=== PATIENT | male | born 1960 | race Caucasian/White ===

== ENCOUNTER 2024-01-15 09:24 | Emergency (ER) | payer OTHER, SELFPAY ==
[2024-01-15] VITALS (10 sets, daily range): BP systolic 119–150; BP diastolic 68–86; PULSE 64–89; RESP 17–18; TEMP 36.4; O2SAT 90–98; BMI 39.9
--- NOTE | 2024-01-15 09:46 | XRR_ITS ---
PROCEDURE INFORMATION: Exam: XR Chest Exam date and time: 01/15/2024 9:51 AM Age: 63 years old Clinical indication: Dyspnea; Additional info: Dyspnea/cough TECHNIQUE: Imaging protocol: Radiologic exam of the chest. Views: 1 view. COMPARISON: No relevant prior studies available. FINDINGS: Lungs: The lung parenchyma is clear. Pleural spaces: No pneumothorax. No large pleural effusion. Heart/Mediastinum: The cardiomediastinal silhouette is within normal limits. Bones/joints: Unremarkable. XR/XR chest 1V portable [id number] IMPRESSION: No acute cardiopulmonary abnormality.
--- NOTE | 2024-01-15 09:47 | ECG_ITS ---
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 Measurements Intervals [place] Rate: 71 P: 78 HI: 166 QRS: -5 QRSD: 96 T: 16 QT: 375 QTc: 408 Interpretive Statements SINUS RHYTHM No previous ECG available for comparison Electronically Signed On 01-15-2024 11:42:08 CDT by Pilo Polanco M.D. [id number]
--- NOTE | 2024-01-15 10:12 | ED_ITS ---
HPI - Dizziness 2 General: Chief Complaint: Dizziness Stated Complaint: FALL Time Seen by Provider: 01/15/24 09:40 Source: patient Mode of arrival: ambulatory History of Present Illness: HPI Narrative: 63-year-old male presents emergency room via EMS after near syncopal episode at [facility]. He is walking around to get dizzy felt weak and fell. He denies hitting anything as he fell he denies striking his head he never had a full loss of consciousness. He was somewhat dizzy at the time he had a good anticipation of the episode. He states he had a similar episode several years ago after he fell out of a truck and hit his head. No chest pain no abdominal pain no difficulty breathing. MD elicited complaint: dizziness and near syncope Onset (ago): minute(s) Timing: sudden onset Description: lightheadedness and off-balance History of similar symptoms: Yes Exacerbating factors: nothing Relieving factors: nothing Associated symptoms: Denies abnormal vaginal bleeding, change in hearing, chest pain, chills, cough, diaphoresis, ear discharge, ear pressure, fevers/chills, headache(s), malaise, nausea, nasal congestion, palpitations, rash, short of breath, syncope, tinnitus, vomiting or weakness Associated neuro symptoms: Deny confusion, difficulty speaking, dysphagia, diplopia, extremity weakness, facial numbness, facial weakness, gait changes, numbness in extremities or visual changes Review of Systems 2 Const: Denies: chills, malaise or diaphoresis ENMT: Denies: ear discharge, change in hearing, tinnitus or nasal congestion Card: Denies: chest pain, palpitations or syncope Resp: Denies: dyspnea GI: Denies: nausea, vomiting or dysphagia : Denies: dysuria, urinary frequency or urinary urgency Musc: Denies: neck pain or back pain Skin/Breast: Denies: rash Neuro: Denies: headache(s), numbness in extremities or confusion Physical Exam 2 Const: COMMON NORMALS: no acute distress GENERAL APPEARANCE: cooperative and comfortable ORIENTATION/CONSCIOUSNESS: Yes awake, Yes oriented to person, Yes oriented to place and Yes oriented to time HENMT: COMMON NORMALS: normocephalic, atraumatic and hearing grossly normal bilaterally HEAD & SCALP: normocephalic and atraumatic Resp: COMMON NORMALS: normal respiratory effort, No retractions, No use of accessory muscles and clear to auscultation bilaterally AUSCULTATION: clear to auscultation bilaterally Cardio: COMMON NORMALS: regular rate, regular rhythm and No murmurs present (Cardio) RATE: regular rate RHYTHM: regular rhythm GI: COMMON NORMALS: Soft to palpation and No hepatosplenomegaly present A USCULTATION: Yes normoactive bowel sounds PALPATION: Yes Soft to palpation, No Tenderness to palpation present (GI), No Guarding due to palpation present (GI) and Yes No hepatosplenomegaly present Extremity: COMMON NORMALS: normal to inspection, capillary refill normal, no clubbing, cyanosis or edema, no calf tenderness and no pedal edema Neuro: SENSORIUM/ORIENTATION: Yes oriented to person, Yes oriented to place and Yes oriented to time Skin: COMMON NORMALS: no rashes or lesions noted GENERAL SKIN EXAM: no rashes or lesions noted Course 2 Vital Signs: Vital signs: Vital Signs Temperature 97.6 F 01/15/24 09:38 Pulse Rate 76 01/15/24 13:35 Respiratory Rate 17 01/15/24 13:35 Blood Pressure 135/72 01/15/24 13:35 Pulse Oximetry 96 01/15/24 13:35 Oxygen Delivery Me thod Room Air 01/15/24 09:38 MDM - Dizziness Medical Decision Making Patient is feeling much better he has no further episodes. After discussion and review the findings. Will discharge patient home. He is feeling well if he like to go home he should have further evaluation including echocardiogram and nuclear stress test. Start patient on isosorbide mononitrate and baby aspirin daily avoid strenuous activities have any recurrence return to the emergency room. Will also try to get him established for PCP. He just recently moved to this area. Medical Records I reviewed the patient's medical records. Lab Data I reviewed the patient's lab results. 01/15/24 10:24 01/15/24 10:24 Radiology Impressions Chest X-Ray 01/15/24 09:46 IMPRESSION: No acute cardiopulmonary abnormality. Head CT 01/15/24 10:41 IMPRESSION: No acute intracranial abnormality. Laboratory Results WBC 6.56 10^3/uL (3.29-11.43) 01/15/24 10:24 RBC 4.97 10^6/uL (3.85-5.65) 06/02/24 10:24 Hgb 14.60 g/dL (11.27-16.99) 01/15/24 10:24 Hct 44.5 % (37-53) 01/15/24 10:24 MCV 89.5 fl (82-101) 01/15/24 10:24 MCH 29.4 pg (27-33) 01/15/24 10:24 MCHC 32.8 g/dL (30-55) 01/15/24 10:24 RDW 13.4 % (12.1-15.1) 01/15/24 10:24 Plt Count 166 10^3/cmm (157-399) 01/15/24 10:24 MPV 10.9 fL (7.4-10.4) H 01/15/24 10:24 Neut % (Auto) 75.0 % 01/15/24 10:24 Lymph % (Auto) 17.4 % 01/15/24 10:24 Webb % (Auto) 5.6 % 01/15/24 10:24 Eos % (Auto) 1.4 % 01/15/24 10:24 Baso % (Auto) 0.3 % 01/15/24 10:24 Neut # (Auto) 4.92 10^3/uL (1.8-7.7) 01/15/24 10:24 Lymph # (Auto) 1.1 10^3/uL (0.8-4.8) 01/15/24 10:24 Webb # (Auto) 0.4 10^3/uL (0.2-0.9) 01/15/24 10:24 Eos # (Auto) 0.1 10^3/uL (0.0-0.8) 01/15/24 10:24 Baso # (Auto) 0.0 10^3/uL (0.0-0.1) 01/15/24 10:24 Nucleated RBC % (auto) 0 % 01/15/24 10:24 Nucleated RBCs # 0.0 /100WBC 01/15/24 10:24 Sodium 137 mmol/L (136-145) 01/15/24 10:24 Potassium 4.5 mmol/L (3.5-5.1) 01/15/24 10:24 Chloride 101 mmol/L (98-107) 06/02/24 10:24 Carbon Dioxide 24 mmol/L (22-29) 01/15/24 10:24 Anion Gap 16.5 (5-19) 01/15/24 10:24 BUN 13 mg/dL (8-23) 01/15/24 10:24 Creatinine 0.9 mg/dL (0.7-1.2) 01/15/24 10:24 GFR Calculation 85.0 mL/min (90-130) L 01/15/24 10:24 Glucose 155 mg/dL (65-115) H 01/15/24 10:24 Calculated Osmolality 287 mOsm/kg (285-295) 01/15/24 10:24 Calcium 9.2 mg/dL (8.5-10.5) 01/15/24 10:24 Total Bilirubin 0.7 mg/dL (0.15-1.2) 01/15/24 10:24 AST 25 U/L (0-40) 01/15/24 10:24 ALT 23 U/L (0-41) 01/15/24 10:24 Alkaline Phosphatase 113 U/L (40-130) 01/15/24 10:24 Troponin T Baseline < 6 ng/L (0-15) 01/15/24 10:24 Troponin T 120 Minute 6.00 ng/L (0-15) 01/15/24 12:02 Delta Troponin T 0.07994 ABS# (0-10) 01/15/24 12:02 Total Protein 7.5 g/dL (6.6-8.7) 01/15/24 10:24 Albumin 4.3 g/dL (3.5-5.2) 01/15/24 10:24 Globulin 3.2 g/dL (1.3-4.6) 01/15/24 10:24 All radiology interpretation(s) finalized by discharge Discharge Plan Discharge Patient Disposition: Home Clinical Impression: Near syncope Condition: Stable Prescriptions: New isosorbide mononitrate 30 mg tablet extended release 24 hr 30 mg PO DAILY Qty: 30 0RF aspirin 81 mg tablet,delayed release (DR/EC) 81 mg PO DAILY Qty: 30 0RF Discharge Orders: Discharge ED (Routine); Ordered 01/15/24 Ordered By: Mike Bone Discharge Activity: Limit activity as instructed Patient Instructions: Opioid Safety, Pain Management Activity Restrictions/Additional Instructions: Thank you for choosing [facility] for your healthcare needs today. It is very important that you follow up as instructed or that you return to the Emergency Department should you have concerns or if your condition changes or worsens in any way. You were seen today after a near syncopal episode. Your cardiac enzymes and EKG were normal your chemistry panel and blood counts were normal. Will discharge you home avoid exertional activities. Will set you up for a echocardiogram and a Lexiscan sestamibi stress test as an outpatient. Recommend you start baby aspirin daily and isosorbide mononitrate once daily. 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
[2024-01-15 10:33] LABS: Basophils % 0.3 %; Eosinophils # 0.1 10^3/uL (0.0-0.8); Eosinophils % 1.4 %; Hematocrit 44.5 % (37-53); Lymphocytes # 1.1 10^3/uL (0.8-4.8); Lymphocytes % 17.4 %; Mean Corpuscular HGB Conc 32.8 g/dL (30-55); Mean Corpuscular Hemoglobin 29.4 pg (27-33); Mean Corpuscular Volume 89.5 fl (82-101); Mean Platelet Volume 10.9 fL (7.4-10.4); Monocytes # 0.4 10^3/uL (0.2-0.9); Monocytes % 5.6 %; Neutrophils # 4.92 10^3/uL (1.8-7.7); Nucleated Red Blood Cells % 0 %; Platelet Count 166 10^3/cmm (157-399); Red Blood Count 4.97 10^6/uL (3.85-5.65); Red Cell Distribution Width 13.4 % (12.1-15.1); White Blood Count 6.56 10^3/uL (3.29-11.43)
--- NOTE | 2024-01-15 10:41 | CTR_ITS ---
PROCEDURE INFORMATION: Exam: CT Head Without Contrast Exam date and time: 01/15/2024 11:00 AM Age: 63 years old Clinical indication: Dizziness and syncope and collapse; Additional info: Near syncopal episode TECHNIQUE: Imaging protocol: Computed tomography of the head without contrast. Radiation optimization: All CT scans at this facility use at least one of these dose optimization techniques: automated exposure control; mA and/or kV adjustment per patient size (includes targeted exams where dose is matched to clinical indication); or iterative reconstruction. COMPARISON: No relevant prior studies available. RADIATION DOSE METRICS: Total DLP (mGy-cm): 1086.68 FINDINGS: Brain: No acute hemorrhage identified. No large territorial areas of hypoattenuation concerning for ischemic infarct identified. No intracranial mass effect. Cerebral ventricles: The ventricles are within normal limits. Paranasal sinuses: The visualized sinuses are unremarkable. Mastoid air cells: The visualized mastoid air cells are well aerated. Bones: Unremarkable. No acute fracture. Soft tissues: Unremarkable. CT/CT head wo con* [id number] IMPRESSION: No acute intracranial abnormality.
[2024-01-15 10:49] LABS: Troponin(5th) Baseline < 6 ng/L (0-15)
[2024-01-15 10:51] LABS: Albumin Level 4.3 g/dL (3.5-5.2); Alkaline Phosphatase 113 U/L (40-130); Blood Urea Nitrogen 13 mg/dL (8-23); Calcium 9.2 mg/dL (8.5-10.5); Carbon Dioxide 24 mmol/L (22-29); Chloride 101 mmol/L (98-107); Creatinine Clr Calc Pharmacy 107.2069; Globulin 3.2 g/dL (1.3-4.6); Glucose 155 mg/dL (65-115); Osmolality Calculated 287 mOsm/kg (285-295); Sodium 137 mmol/L (136-145); Total Bilirubin 0.7 mg/dL (0.15-1.2); Total Protein 7.5 g/dL (6.6-8.7)
[2024-01-15 10:55] LABS: Alanine Aminotransferase 23 U/L (0-41); Anion Gap 16.5 (5-19); Aspartate Amino Transferase 25 U/L (0-40); Potassium 4.5 mmol/L (3.5-5.1)
--- NOTE | 2024-01-15 11:47 | ECG_ITS ---
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 Measurements Intervals [place] Rate: 72 P: 44 DC: 164 QRS: -7 QRSD: 117 T: 18 QT: 385 QTc: 422 Interpretive Statements SINUS RHYTHM MODERATE INTRAVENTRICULAR CONDUCTION DELAY [110+ ms QRS DURATION] Compared to ECG 01/15/2024 10:26:37 Intraventricular conduction delay now present Electronically Signed On 01-15-2024 17:38:07 CDT by Pilo Polanco M.D. [id number]
[2024-01-15 12:27] LABS: Troponin 5 2HR Delta 0.00001 ABS# (0-10)
--- NOTE | 2024-01-16 07:58 | DCPLANNER ---
message sent to establish pcp and faxed orders for er f/u to scheduling
--- NOTE | 2024-01-16 08:09 | DCPLANNER ---
order faxed to scheduling for er f/u
== END 2024-01-15 13:37 | disposition home or self-care (01) ==
PROVIDERS: Emergency Provider Family Medicine
DX: R55 Syncope and collapse (principal)
CPT/HCPCS: 70450; 71045; 80053; 84484; 85025; 93005; 99285